=== PATIENT | male | born 1960 | race Caucasian/White ===

== ENCOUNTER → 2020-09-21 10:28 | Outpatient (CLI) | payer OTHER, SELFPAY ==
[2020-09-21] MEDS: COVID-19 VACC #1, MRNA(MOD) 100 MCG/0.5 ML VIAL IM (10:38)
== END ==
PROVIDERS: PCP Family Medicine; Visit Provider Internal Medicine
DX: Z23 Encounter for immunization (principal)
CPT/HCPCS: 0011A; 91301

== ENCOUNTER → 2020-10-20 09:00 | Outpatient (CLI) | payer OTHER, SELFPAY ==
[2020-10-20] MEDS: COVID-19 VACC #2, MRNA(MOD) 100 MCG/0.5 ML VIAL IM (09:06)
== END ==
PROVIDERS: PCP Family Medicine; Visit Provider Internal Medicine
DX: Z23 Encounter for immunization (principal)
CPT/HCPCS: 0012A; 91301

== ENCOUNTER → 2023-11-28 08:26 | Outpatient (CLI) | payer OTHER, SELFPAY ==
[2023-11-28 09:46] LABS: Add Manual Diff / Slide Review NO; Basophils Absolute Auto 100 /uL (0-100); Basophils Percent Auto 0.8 % (0-2); Eosinophils Absolute Auto 200 /uL (0-450); Eosinophils Percent Auto 2.6 % (2-4); Hematocrit 45.6 % (41-53); Hemoglobin 15.7 g/dL (13.5-17.5); Lymphocytes Absolute Auto 1200 /uL (1100-4500); Lymphocytes Percent Auto 18.8 % (25-40); Mean Corpuscular HGB Conc 34.5 % (30-36); Mean Corpuscular Hemoglobin 30.8 PG (26-34); Mean Corpuscular Volume 89.1 fL (80-100); Monocytes Absolute Auto 900 /uL (0-900); Neutrophils Absolute Auto 4300 /uL (1500-7000); Neutrophils Percent Auto 64.8 % (50-75); Platelet Count 210 X10^3/uL (150-400); Red Blood Cell Count 5.12 X10^6/uL (4.5-5.9); Red Cell Distribution Width 14.4 % (11.6-14.8); White Blood Cell Count 6.6 X10^3/uL (4.5-11.0)
[2023-11-28 10:36] LABS: Alanine Aminotransferase 21 IU/L (<50); Albumin 4.2 g/dL (3.5-5.0); Albumin Globulin Ratio 1.4 (1.0-2.8); Alkaline Phosphatase 49 U/L (38-126); Aspartate Aminotransferase 26 IU/L (17-59); BUN Creatinine Ratio 20.5 (6-22); Blood Urea Nitrogen 23 mg/dL (9-20); Calcium 8.9 mg/dL (8.4-10.2); Carbon Dioxide 24 mmol/L (22-32); Chloride 108 mmol/L (98-107); Cholesterol 186 mg/dL (140-199); Estimated Glomerular Filt Rate > 60 mL/min (>60); Globulin 2.9 g/dL (1.7-4.1); Glucose 90 mg/dL (80-110); HDL Cholesterol 58 mg/dL (40-60); HEMOLYSIS < 15 (0-50); LDL Cholesterol Calculated 110 mg/dL (<100); Potassium 4.8 mmol/L (3.4-5.1); Sodium 138 mmol/L (137-145); Total Protein 7.1 g/dL (6.3-8.2); Triglycerides 92 mg/dL (35-150)
[2023-11-28 10:48] LABS: Free T4, Direct Thyroxine 1.15 ng/dL (0.78-2.19)
[2023-11-28 11:02] LABS: Thyroid Stimulating Hormone 2.07 uIU/mL (0.47-4.68)
[2023-11-28 11:04] LABS: Prostate Specific Antigen Scrn 0.482 ng/mL (0.1-4.0)
[2023-11-29 18:10] LABS: HIV 1 & 2 Ab/Ag 4th Gen Combo NEGATIVE (NEGATIVE); Hep C Virus Ab w/Reflex Quant NEGATIVE s/c (NEGATIVE)
== END ==
PROVIDERS: PCP Family Medicine; Referring Provider Family Medicine; Visit Provider Family Medicine
DX: Z11.59 Encounter for screening for other viral diseases (principal); I49.9 Cardiac arrhythmia, unspecified; Z12.5 Encounter for screening for malignant neoplasm of prostate; Z11.4 Encounter for screening for human immunodeficiency virus [HIV]; Z13.220 Encounter for screening for lipoid disorders; Z13.9 Encounter for screening, unspecified
CPT/HCPCS: 36415; 80053; 80061; 84439; 84443; 85025; 86803; 87389; G0103

== ENCOUNTER → 2023-12-17 06:49 | Outpatient (CLI) | payer OTHER, SELFPAY ==
--- NOTE | 2023-12-17 06:50 | DI.ECHO.S_ITS ---
[facility] : : [address] : : [place] : : [id number] : : Phone: [phone] Echocardiogram Report + + :Name: BJORN MCDOWELL Study Date: 12/17/2023 Height: 71 in : :Hospital ReadingLocation: Weight: 185 lb : : Gender: Male BSA: 2.0 m2 : :: 1960 Age: 63 yrs BP: 128/83 mmHg: :Reason For Study: ATRIAL FIBRILLATION : :Ordering Physician: SHILPA, : :JOHNNY Tobias Performed By: Johnny Villeda : :Referring: JOHNNY MASSEY : + + Interpretation Summary The patient was in atrial fibrillation with heart rates between 74-109 bpm during the exam. The ejection fraction is estimated to be 55-60%. Diastolic function could not be accurately assessed due to atrial fibrillation. The right ventricle is normal in size and function. There is mild mitral regurgitation. Pulmonary artery pressures cannot be estimated because of the lack of a measurable TR jet velocity but the IVC suggests a CVP of around 3 mmHg. Procedure: A two-dimensional transthoracic echocardiogram with color flow and Doppler was performed. The study quality was technically adequate. There is no prior echocardiogram noted for this patient. The patient was in atrial fibrillation with heart rates between 74-109 bpm during the exam. Left Ventricle: The left ventricle is normal in size and wall thickness. The ejection fraction is estimated to be 55-60%. Diastolic function could not be accurately assessed due to atrial fibrillation. Right Ventricle: The right ventricle is normal in size and function. Atria: The left atrial size is normal. Right atrial size is normal. The interatrial septum grossly appears intact with no obvious evidence for an atrial septal defect. Mitral Valve: The mitral valve is normal. There is no mitral valve stenosis. There is mild mitral regurgitation. Aortic Valve: The aortic valve is trileaflet. There is no aortic valve stenosis. No aortic regurgitation is present. Tricuspid Valve: The tricuspid valve is not well visualized, but is grossly normal. There is no tricuspid stenosis. There is trace tricuspid regurgitation. Pulmonary artery pressures cannot be estimated because of the lack of a measurable TR jet velocity but the IVC suggests a CVP of around 3 mmHg. Pulmonic Valve: The pulmonic valve is not well visualized. There is no pulmonic valvular stenosis. There is trace pulmonic regurgitation. Great Vessels: The aortic root is normal size. The dimensions of the ascending aorta are normal. The IVC is of normal diameter and collapses greater than 50% with a sniff. This suggests a low right atrial pressure of 3 mm Hg. Pericardium/ Pleura There is no pericardial effusion. There is no pleural effusion. MMode/2D Measurements & Calculations LVIDd: 4.7 cm LVOT diam: 2.2 cm LVIDs: 3.2 cm Ao root diam: 3.5 cm FS: 30.7 % asc Aorta Diam: 3.2 cm IVSd: 1.0 cm Ao Arch Diam (Prox Trans): 2.9 cm LVPWd: 1.1 cm LV hess. diameter/BSA (cm/m^2): 2.3 LV sys. diameter/BSA (cm/m^2): 1.6 LA A2 area: 20.8 cm2 RA long axis: 5.1 cm LA A4 area: 21.0 cm2 RA area: 14.2 cm2 LA length (vol): 5.7 cm RA vol: 33.8 ml LA vol: 64.4 ml RA : 16.6 ml/m2 LA vol index: 31.6 ml/m2 IVC diam: 1.5 cm RVD1 (basal): 3.6 cm RVD2 (mid): 2.9 cm TAPSE: 1.7 cm Doppler Measurements & Calculations Ao V2 max: 84.1 cm/sec LVOT Max Isaiah: 71.8 cm/sec Ao V2 mean: 60.3 cm/sec LV V1 max P.1 mmHg Ao max P.8 mmHg LV V1 VTI: 14.1 cm Ao mean P.6 mmHg EKTA(I,D): 3.9 cm2 Ao V2 VTI: 13.8 cm EKTA(V,D): 3.3 cm2 sev ratio: 1.0 EKTA indexed to BSA (cm^2/m^2): 1.9 MV E max isaiah: 86.4 cm/sec PA V2 max: 82.0 cm/sec MV A max isaiah: 23.9 cm/sec PA V2 mean: 53.6 cm/sec MV E/A: 3.6 PA mean P.3 mmHg MV dec time: 0.11 sec PA pr(Accel): 44.7 mmHg SV(LVOT): 54.0 ml Reading Physician:03:[id number] PM
== END ==
PROVIDERS: PCP Family Medicine; Referring Provider Family Medicine; Visit Provider Family Medicine
DX: I34.0 Nonrheumatic mitral (valve) insufficiency (principal); I48.91 Unspecified atrial fibrillation
CPT/HCPCS: 93306

== ENCOUNTER → 2024-04-02 15:07 | Outpatient (CLI) | payer OTHER, SELFPAY ==
--- NOTE | 2024-04-02 22:22 | DI.NM.S_ITS ---
DATE OF SERVICE: 04/02/2024 PROCEDURE: Exercise stress test. INDICATIONS: Paroxysmal AFib. CARDIAC STRESS: The patient underwent exercise stress test under the supervision of an attending staff. He walked on Neville protocol for 7 minutes and 50 seconds, achieved maximum heart rate of 176, which was 114% of predicted target heart rate. Resting blood pressure 122/90 and peak blood pressure 188/94 mmHg. 10.1 METS of workload. JUD 0%. Baseline rhythm was atrial fibrillation with controlled ventricular rate and nonspecific ST-T changes. However, during second stage of exercise, the patient converted to sinus rhythm with sinus tachycardia during exercise. No convincing ischemic changes. In recovery, the patient remained in sinus rhythm. Some PVCs without any ventricular tachycardia. No chest pain. Had some shortness of breath. CONCLUSION: Exercise stress test is negative for inducible ischemia. Initial baseline rhythm was atrial fibrillation; however, during second stage of exercise, the patient developed sinus rhythm with sinus tachycardia. In recovery, the patient remained in sinus rhythm. 10.1 METS of workload. Fair exercise tolerance. Normal blood pressure response. No chest pain; however, has some shortness of breath. No sustained ventricular tachycardia. Normal recovery. Conclusion; this is a low-risk exercise stress test. Eleazar Lepe - KARI/babak/SARI doc#: [id number]/job#: [id number] dd: 04/02/2024 17:12:00 dt: 04/02/2024 21:58:00 DICTATING /COPIES TO: Paris Cardenas MD COPIES MNE: DALIA;
== END ==
PROVIDERS: PCP Family Medicine; Referring Provider Internal Medicine; Visit Provider Internal Medicine
DX: R07.9 Chest pain, unspecified (principal); I48.0 Paroxysmal atrial fibrillation
CPT/HCPCS: 93017

== ENCOUNTER → 2024-04-22 08:35 | Outpatient (CLI) | payer OTHER, SELFPAY ==
[2024-04-22 09:29] LABS: Add Manual Diff / Slide Review NO; Basophils Absolute Auto 100 /uL (0-100); Basophils Percent Auto 1.3 % (0-2); Eosinophils Absolute Auto 200 /uL (0-450); Eosinophils Percent Auto 2.2 % (2-4); Hematocrit 47.1 % (41-53); Hemoglobin 16.4 g/dL (13.5-17.5); Lymphocytes Absolute Auto 1400 /uL (1100-4500); Mean Corpuscular HGB Conc 34.8 % (30-36); Mean Corpuscular Hemoglobin 30.6 PG (26-34); Monocytes Absolute Auto 900 /uL (0-900); Monocytes Percent Auto 12.3 % (3-14); Neutrophils Absolute Auto 4800 /uL (1500-7000); Neutrophils Percent Auto 65.2 % (50-75); Platelet Count 220 X10^3/uL (150-400); Red Blood Cell Count 5.35 X10^6/uL (4.5-5.9); Red Cell Distribution Width 13.7 % (11.6-14.8); White Blood Cell Count 7.4 X10^3/uL (4.5-11.0)
[2024-04-22 10:07] LABS: BUN Creatinine Ratio 24.3 (6-22); Blood Urea Nitrogen 25 mg/dL (9-20); Calcium 9.5 mg/dL (8.4-10.2); Carbon Dioxide 23 mmol/L (22-32); Chloride 108 mmol/L (98-107); Estimated Glomerular Filt Rate > 60 mL/min (>60); Glucose 103 mg/dL (80-110); HEMOLYSIS < 15 (0-50); Potassium 4.5 mmol/L (3.4-5.1); Sodium 140 mmol/L (137-145)
== END ==
LOC: LAB 08:36
PROVIDERS: PCP Family Medicine; Referring Provider Internal Medicine; Visit Provider Internal Medicine
DX: I48.0 Paroxysmal atrial fibrillation (principal)
CPT/HCPCS: 36415; 80048; 85025

== ENCOUNTER → 2024-08-30 08:59 | Outpatient (CLI) | payer MEDICARE, SELFPAY ==
[2024-08-30 10:55] LABS: Add Manual Diff / Slide Review NO; Basophils Absolute Auto 100 /uL (0-100); Basophils Percent Auto 0.7 % (0-2); Eosinophils Absolute Auto 100 /uL (0-450); Eosinophils Percent Auto 1.5 % (2-4); Hematocrit 41.1 % (41-53); Hemoglobin 14.3 g/dL (13.5-17.5); Lymphocytes Absolute Auto 1200 /uL (1100-4500); Lymphocytes Percent Auto 15.3 % (25-40); Mean Corpuscular HGB Conc 34.8 % (30-36); Mean Corpuscular Hemoglobin 30.5 PG (26-34); Mean Corpuscular Volume 87.8 fL (80-100); Monocytes Absolute Auto 1100 /uL (0-900); Monocytes Percent Auto 14.3 % (3-14); Neutrophils Absolute Auto 5200 /uL (1500-7000); Neutrophils Percent Auto 68.2 % (50-75); Platelet Count 173 X10^3/uL (150-400); Red Blood Cell Count 4.68 X10^6/uL (4.5-5.9); Red Cell Distribution Width 14.4 % (11.6-14.8); White Blood Cell Count 7.6 X10^3/uL (4.5-11.0)
[2024-08-30 11:39] LABS: Alanine Aminotransferase 34 IU/L (<50); Albumin 4.3 g/dL (3.5-5.0); Albumin Globulin Ratio 1.8 (1.0-2.8); Alkaline Phosphatase 48 U/L (38-126); Aspartate Aminotransferase 30 IU/L (17-59); Bilirubin Total 1.2 mg/dL (0.2-1.3); Blood Urea Nitrogen 28 mg/dL (9-20); Calcium 9.4 mg/dL (8.4-10.2); Carbon Dioxide 25 mmol/L (22-32); Chloride 105 mmol/L (98-107); Cholesterol 84 mg/dL (140-199); Estimated Glomerular Filt Rate > 60 mL/min (>60); Globulin 2.4 g/dL (1.7-4.1); Glucose 87 mg/dL (80-110); HDL Cholesterol 43 mg/dL (40-60); HEMOLYSIS < 15 (0-50); LDL Cholesterol Calculated 31 mg/dL (<100); Potassium 4.6 mmol/L (3.4-5.1); Sodium 140 mmol/L (137-145); Total Protein 6.7 g/dL (6.3-8.2); Triglycerides 48 mg/dL (35-150)
== END ==
PROVIDERS: PCP Family Medicine; Referring Provider Family Medicine; Visit Provider Family Medicine
DX: E78.00 Pure hypercholesterolemia, unspecified (principal); I25.10 Atherosclerotic heart disease of native coronary artery without angina pectoris; I48.91 Unspecified atrial fibrillation
CPT/HCPCS: 36415; 80053; 80061; 85025